=== PATIENT | female | born 1930 | race Caucasian/White ===

== ENCOUNTER → 2016-04-12 | Outpatient (REF) | payer MEDICARE ==
[~2016-04-12] MED LIST: /WARF25TA OR; BISA5TA OR; CALCCHW12 PO; PAIN325T OR; PERC5TAB8 OR; VITAMIN; [UNRECOGNIZED DRUG - OTHER] PO
== END ==
LOC: M LAB REF 15:35
PROVIDERS: ATTEND Ophthalmology
DX: L72.0 Epidermal cyst (principal)

== ENCOUNTER → 2016-11-03 | Outpatient (REF) | payer MEDICARE | LOC: M LAB REF 09:11 | PROVIDERS: ATTEND Nurse Practitioner Women's Health | DX: N39.0 Urinary tract infection, site not specified (principal) ==

== ENCOUNTER → 2016-11-18 | Outpatient (REF) | payer MEDICARE ==
[2016-11-18 19:44] LABS: MEAN CORPUSCULAR HEMOGLOBIN 30.7 pg (27.0-33.0); MEAN CORPUSCULAR HGB CONC 32.6 g/dl (32.0-36.5); MEAN CORPUSCULAR VOLUME 94.1 fl (80.0-96.0); RED CELL DISTRIBUTION WIDTH 13.6 % (11.5-14.5); WHITE BLOOD COUNT 7.8 10^3/uL (4.0-10.0)
[2016-11-18 19:52] LABS: ALBUMIN 3.5 GM/DL (3.2-5.2); ALBUMIN/GLOBULIN RATIO 0.95 (1.00-1.93); ALKALINE PHOSPHATASE 93 U/L (45-117); ALT/SGPT 25 U/L (12-78); ANION GAP 5 MEQ/L (8-16); AST/SGOT 14 U/L (15-37); BILIRUBIN,TOTAL 0.3 MG/DL (0.2-1.0); BLOOD UREA NITROGEN 18 MG/DL (7-18); CALCIUM LEVEL 9.3 MG/DL (8.8-10.2); CARBON DIOXIDE LEVEL 30 MEQ/L (21-32); CHLORIDE LEVEL 104 MEQ/L (98-107); CHOLESTEROL LEVEL 250 MG/DL (<200); CREATININE FOR GFR 0.71 MG/DL (0.55-1.02); GLOMERULAR FILTRATION RATE > 60.0 (>32); GLUCOSE, FASTING 98 MG/DL (83-110); POTASSIUM SERUM 4.6 MEQ/L (3.5-5.1); SODIUM LEVEL 139 MEQ/L (136-145); TOTAL PROTEIN 7.2 GM/DL (6.4-8.2); TRIGLYCERIDES LEVEL 229 MG/DL (<150)
== END ==
LOC: M SFHCPLAZ 14:55
PROVIDERS: ATTEND Internal Medicine
DX: M81.0 Age-related osteoporosis without current pathological fracture (principal); R73.01 Impaired fasting glucose; R03.0 Elevated blood-pressure reading, without diagnosis of hypertension; E78.00 Pure hypercholesterolemia, unspecified; K58.9 Irritable bowel syndrome, unspecified; Z23 Encounter for immunization
CPT/HCPCS: 80053; 80061; 82306; 83036; 85027; 90732; G0009; G0463

== ENCOUNTER → 2017-01-17 | Outpatient (REF) | payer MEDICARE | LOC: M LAB REF 17:11 | PROVIDERS: ATTEND Nurse Practitioner Women's Health | DX: N39.0 Urinary tract infection, site not specified (principal) ==

== ENCOUNTER → 2017-02-02 | Outpatient (REF) | payer MEDICARE | LOC: M LAB REF 17:17 | PROVIDERS: ATTEND Nurse Practitioner Women's Health | DX: N39.0 Urinary tract infection, site not specified (principal) ==

== ENCOUNTER → 2017-03-02 | Outpatient (REF) | payer MEDICARE ==
[2017-03-02 18:17] LABS: AMORPHOUS SEDIMENT SMALL (NEGATIVE); APPEARANCE, URINE CLOUDY (CLEAR); BACTERIA, URINE AUTO 1+ (NEGATIVE); BILIRUBIN, URINE AUTO NEGATIVE (NEGATIVE); BLOOD, URINE BLOOD NEGATIVE (NEGATIVE); COLOR, URINE YELLOW (YELLOW); GLUCOSE, URINE (UA) AUTO NEGATIVE (NEGATIVE); KETONE, URINE AUTO NEGATIVE (NEGATIVE); LEUKOCYTE ESTERASE, URINE AUTO 3+ (NEGATIVE); NITRITE, URINE AUTO NEGATIVE (NEGATIVE); PROTEIN, URINE AUTO 1+ mg/dL (NEGATIVE); RBC, URINE AUTO 37 /HPF (0-3); SPECIFIC GRAVITY URINE AUTO 1.016 (1.002-1.035); SQUAMOUS EPITHELIAL CELL UR AU 1 /HPF (0-6); UROBILINOGEN, URINE AUTO 0.2 mg/dL (0.0-2.0); WBC, URINE AUTO TNTC /HPF (0-3)
== END ==
LOC: M LAB REF 17:23
DX: N39.0 Urinary tract infection, site not specified (principal)
CPT/HCPCS: 81001

== ENCOUNTER → 2017-03-28 | Outpatient (REF) | payer MEDICARE ==
[2017-03-28 14:14] LABS: ERYTHROCYTE SEDIMENTATION RATE 7 mm/hr (0-30)
[2017-03-28 14:29] LABS: C REACTIVE PROTEIN QUANTITATIV < 0.30 MG/DL (0.00-0.30)
[2017-03-28 14:29] LABS: RHEUMATOID FACTOR QUANT < 10.0 IU/ML (0-15.0)
[2017-03-30 00:07] LABS: Lyme Disease IgG/IgM Antibodie <0.91 ISR (0.00-0.90); Lyme Disease IgM Ab Quantitati <0.80 index (0.00-0.79)
[2017-03-31 00:06] LABS: CYCLIC CITRULLINATED PEPTIDE 7 units (0-19)
[2017-03-31 00:06] LABS: ANA (HEP2) Negative (.)
== END ==
LOC: M SFHCPLAZ 11:42
DX: M79.604 Pain in right leg (principal); M79.605 Pain in left leg
CPT/HCPCS: 86140

== ENCOUNTER 2017-04-24 08:47 | Emergency (ER) | payer MEDICARE ==
[2017-04-24 09:25] LABS: BASO % 0.7 % (0.0-1.0); EOS # 0.1 10^3/uL (0.0-0.50); EOS % 1.3 % (0.0-3.0); HEMOGLOBIN 13.8 g/dl (12.0-16.0); IMMATURE GRANULOCYTE % 0.3 % (0-3.0); LYMPH # 1.4 10^3/uL (1.5-4.5); LYMPH % 22.7 % (24.0-44.0); MEAN CORPUSCULAR HEMOGLOBIN 31.2 pg (27.0-33.0); MEAN CORPUSCULAR HGB CONC 34.5 g/dl (32.0-36.5); MEAN CORPUSCULAR VOLUME 90.5 fl (80.0-96.0); MONO # 0.5 10^3/uL (0.0-0.8); MONO % 8.7 % (0.0-5.0); NEUTROPHILS % 66.3 % (36.0-66.0); PLATELET COUNT, AUTOMATED 246 10^3/uL (150-450); RED BLOOD COUNT 4.42 10^6/uL (4.00-5.40); RED CELL DISTRIBUTION WIDTH 13.4 % (11.5-14.5)
[2017-04-24] MEDS: KETOROLAC 30 MG/ML VIAL (J1885) IV (09:26)
[2017-04-24 10:08] LABS: ANION GAP 7 MEQ/L (8-16); BLOOD UREA NITROGEN 16 MG/DL (7-18); CALCIUM LEVEL 9.2 MG/DL (8.8-10.2); CARBON DIOXIDE LEVEL 28 MEQ/L (21-32); CHLORIDE LEVEL 104 MEQ/L (98-107); CREATININE FOR GFR 0.64 MG/DL (0.55-1.30); GLOMERULAR FILTRATION RATE > 60.0 (>32); GLUCOSE, FASTING 104 MG/DL (70-100); POTASSIUM SERUM 3.8 MEQ/L (3.5-5.1); SODIUM LEVEL 139 MEQ/L (136-145)
[2017-04-24] MEDS: ACETAMINOPHEN TAB 650MG DOSE (2X325MG) PO (10:41)
== END 2017-04-24 12:11 | disposition home or self-care (01) ==
LOC: M ED 08:47
DX: M79.1 Myalgia (principal); I10 Essential (primary) hypertension; I45.19 Other right bundle-branch block
CPT/HCPCS: J1885

== ENCOUNTER → 2017-06-11 | Outpatient (REF) | payer MEDICARE ==
[2017-06-11 21:49] LABS: APPEARANCE, URINE HAZY (CLEAR); BACTERIA, URINE AUTO 2+ (NEGATIVE); BILIRUBIN, URINE AUTO NEGATIVE (NEGATIVE); BLOOD, URINE BLOOD NEGATIVE (NEGATIVE); COLOR, URINE YELLOW (YELLOW); GLUCOSE, URINE (UA) AUTO NEGATIVE (NEGATIVE); KETONE, URINE AUTO NEGATIVE (NEGATIVE); LEUKOCYTE ESTERASE, URINE AUTO 3+ (NEGATIVE); NITRITE, URINE AUTO NEGATIVE (NEGATIVE); PROTEIN, URINE AUTO NEGATIVE (NEGATIVE); RBC, URINE AUTO 3 /HPF (0-3); SPECIFIC GRAVITY URINE AUTO 1.006 (1.002-1.035); SQUAMOUS EPITHELIAL CELL UR AU 3 /HPF (0-6); UROBILINOGEN, URINE AUTO 0.2 mg/dL (0.0-2.0); WBC, URINE AUTO 18 /HPF (0-3)
== END ==
LOC: M LAB REF 09:12
DX: R30.0 Dysuria (principal)
CPT/HCPCS: 81001

== ENCOUNTER 2017-07-09 07:58 | Emergency (ER) | payer MEDICARE ==
[2017-07-09] MEDS: NS 500 ML IV ×2 (08:15→08:36)
[2017-07-09 08:39] LABS: BASO % 0.4 % (0.0-1.0); EOS # 0.1 10^3/uL (0.0-0.50); EOS % 1.4 % (0.0-3.0); HEMATOCRIT 40.3 % (36.0-47.0); HEMOGLOBIN 13.8 g/dl (12.0-15.5); IMMATURE GRANULOCYTE % 0.4 % (0-3.0); LYMPH # 1.7 10^3/uL (1.5-4.5); LYMPH % 21.7 % (24.0-44.0); MEAN CORPUSCULAR HEMOGLOBIN 31.2 pg (27.0-33.0); MEAN CORPUSCULAR HGB CONC 34.2 g/dl (32.0-36.5); MONO # 0.9 10^3/uL (0.0-0.8); MONO % 11.1 % (0.0-5.0); PLATELET COUNT, AUTOMATED 268 10^3/uL (150-450); RED BLOOD COUNT 4.43 10^6/uL (4.00-5.40); RED CELL DISTRIBUTION WIDTH 13.2 % (11.5-14.5); WHITE BLOOD COUNT 7.7 10^3/uL (4.0-10.0)
[2017-07-09 08:40] LABS: VENOUS BASE EXCESS 3.9 (-2.0-2.0); VENOUS HCO3 29.1 MEQ/L (23.0-27.0); VENOUS O2 SATURATION 88.3 % (60.0-80.0); VENOUS PARTIAL PRESSURE CO2 45.6 mmHg (38.0-50.0); VENOUS PARTIAL PRESSURE O2 54.3 mmHg (30.0-50.0); VENOUS PH 7.423 UNITS (7.330-7.430); VENOUS STANDARD HCO3 27.7 MEQ/L; VENOUS TOTAL CO2 30.5 MEQ/L (24.0-28.0)
[2017-07-09 08:58] LABS: AMMONIA 11 uMOL/L (<32)
[2017-07-09 09:03] LABS: ACETAMINOPHEN LEVEL < 2.0 UG/ML (10.0-30.0); ALBUMIN 3.3 GM/DL (3.2-5.2); ALBUMIN/GLOBULIN RATIO 0.94 (1.00-1.93); ALKALINE PHOSPHATASE 57 U/L (45-117); ALT/SGPT 24 U/L (12-78); ANION GAP 6 MEQ/L (8-16); AST/SGOT 11 U/L (7-37); BILIRUBIN,DIRECT 0.1 MG/DL (0.0-0.2); BILIRUBIN,TOTAL 0.4 MG/DL (0.2-1.0); BLOOD UREA NITROGEN 16 MG/DL (7-18); CALCIUM LEVEL 8.8 MG/DL (8.8-10.2); CARBON DIOXIDE LEVEL 29 MEQ/L (21-32); CHLORIDE LEVEL 103 MEQ/L (98-107); CPK CREATINE PHOSPHOKINASE 36 U/L (26-192); CREATININE FOR GFR 0.72 MG/DL (0.55-1.30); ETHYL ALCOHOL (ETHANOL) < 0.003 % (0.000-0.010); GLOMERULAR FILTRATION RATE > 60.0 (>32); GLUCOSE, FASTING 110 MG/DL (70-100); POTASSIUM SERUM 4.2 MEQ/L (3.5-5.1); SALICYLATE LEVEL < 1.7 MG/DL (5.0-30.0); SODIUM LEVEL 138 MEQ/L (136-145); TOTAL PROTEIN 6.8 GM/DL (6.4-8.2); TROPONIN I < 0.02 NG/ML (< 0.10)
[2017-07-09 09:10] LABS: THYROID STIMULATING HORMONE 0.544 uIU/ML (0.358-3.740)
[2017-07-09 09:11] LABS: CK-MB VALUE MASS < 1.0 NG/ML (<3.6); MB/CK RELATIVE INDEX 2.77 (< OR =4)
[2017-07-09 09:20] LABS: KETONE, URINE AUTO RFX NEGATIVE (NEGATIVE); LEUKOCYTE ESTERASE UR AUTO RFX NEGATIVE (NEGATIVE); NITRITE, URINE AUTO RFX NEGATIVE (NEGATIVE); RBC, URINE AUTO RFX 0 /HPF (0-3); SPECIFIC GRAVITY UR AUTO RFX 1.009 (1.002-1.035); SQUAM EPITHELIAL CELL UR AURFX 0 /HPF (0-6); WBC, URINE AUTO RFX 0 /HPF (0-3)
[2017-07-09] MEDS: NS 1,000 ML IV (09:23)
[2017-07-09 09:35] LABS: AMPHETAMINES LEVEL URINE NEGATIVE (NEGATIVE); BARBITURATES URINE NEGATIVE (NEGATIVE); BENZODIAZEPINES URINE NEGATIVE (NEGATIVE); CANNABINOIDS URINE NEGATIVE (NEGATIVE); COCAINE METABOLITE URINE NEGATIVE (NEGATIVE); METHADONE URINE NEGATIVE (NEGATIVE); OPIATES URINE NEGATIVE (NEGATIVE); PHENCYCLIDINE URINE NEGATIVE (NEGATIVE)
== END 2017-07-09 10:53 | disposition home or self-care (01) ==
LOC: M ED 07:58
DX: F41.9 Anxiety disorder, unspecified (principal); I10 Essential (primary) hypertension; Z79.899 Other long term (current) drug therapy
CPT/HCPCS: 71045

== ENCOUNTER → 2017-11-10 | Outpatient (CLI) | payer MEDICARE | LOC: M WHC 13:58 | DX: Z12.31 Encounter for screening mammogram for malignant neoplasm of breast (principal); M81.0 Age-related osteoporosis without current pathological fracture; N60.31 Fibrosclerosis of right breast; N60.32 Fibrosclerosis of left breast; M85.88 Other specified disorders of bone density and structure, other site; M85.851 Other specified disorders of bone density and structure, right thigh; M85.852 Other specified disorders of bone density and structure, left thigh | CPT/HCPCS: 77067 ==

== ENCOUNTER → 2017-12-06 | Outpatient (CLI) | payer MEDICARE | LOC: M SLEEP HO 09:00 | DX: G47.39 Other sleep apnea (principal) | CPT/HCPCS: G0399 ==

== ENCOUNTER 2017-12-11 07:15 | Emergency (ER) | payer MEDICARE ==
[2017-12-11 08:03] LABS: BASO % 0.6 % (0.0-1.0); EOS # 0.1 10^3/uL (0.0-0.50); EOS % 1.3 % (0.0-3.0); HEMATOCRIT 42.7 % (36.0-47.0); HEMOGLOBIN 14.4 g/dl (12.0-15.5); IMMATURE GRANULOCYTE % 0.2 % (0-3.0); LYMPH # 1.6 10^3/uL (1.5-4.5); LYMPH % 24.8 % (24.0-44.0); MEAN CORPUSCULAR HEMOGLOBIN 30.9 pg (27.0-33.0); MEAN CORPUSCULAR HGB CONC 33.7 g/dl (32.0-36.5); MEAN CORPUSCULAR VOLUME 91.6 fl (80.0-96.0); MONO # 0.6 10^3/uL (0.0-0.8); MONO % 9.2 % (0.0-5.0); NEUTROPHILS # 4.1 10^3/uL (1.8-7.7); NEUTROPHILS % 63.9 % (36.0-66.0); PLATELET COUNT, AUTOMATED 272 10^3/uL (150-450); RED BLOOD COUNT 4.66 10^6/uL (4.00-5.40); RED CELL DISTRIBUTION WIDTH 13.2 % (11.5-14.5); WHITE BLOOD COUNT 6.4 10^3/uL (4.0-10.0)
[2017-12-11 08:38] LABS: ALBUMIN 3.4 GM/DL (3.2-5.2); ALBUMIN/GLOBULIN RATIO 1.06 (1.00-1.93); ALKALINE PHOSPHATASE 68 U/L (45-117); ALT/SGPT 20 U/L (12-78); ANION GAP 6 MEQ/L (8-16); AST/SGOT 12 U/L (7-37); BILIRUBIN,DIRECT 0.1 MG/DL (0.0-0.2); BILIRUBIN,TOTAL 0.6 MG/DL (0.2-1.0); BLOOD UREA NITROGEN 15 MG/DL (7-18); CALCIUM LEVEL 9.3 MG/DL (8.8-10.2); CARBON DIOXIDE LEVEL 30 MEQ/L (21-32); CHLORIDE LEVEL 104 MEQ/L (98-107); CK-MB VALUE MASS < 1.0 NG/ML (<3.6); CPK CREATINE PHOSPHOKINASE 54 U/L (26-192); CREATININE FOR GFR 0.64 MG/DL (0.55-1.30); FREE T4 1.24 NG/DL (0.76-1.46); GLOMERULAR FILTRATION RATE > 60.0 (>32); GLUCOSE, FASTING 107 MG/DL (70-100); MAGNESIUM LEVEL 2.4 MG/DL (1.8-2.4); MB/CK RELATIVE INDEX 1.85 (< OR =4); PHOSPHORUS LEVEL 3.1 MG/DL (2.5-4.9); POTASSIUM SERUM 4.2 MEQ/L (3.5-5.1); SODIUM LEVEL 140 MEQ/L (136-145); THYROID STIMULATING HORMONE 0.687 uIU/ML (0.358-3.740); TOTAL PROTEIN 6.6 GM/DL (6.4-8.2); TROPONIN I < 0.02 NG/ML (< 0.10)
[2017-12-11 09:02] LABS: AMORPHOUS SEDIMENT RFX SMALL (NEGATIVE); KETONE, URINE AUTO RFX NEGATIVE (NEGATIVE); LEUKOCYTE ESTERASE UR AUTO RFX NEGATIVE (NEGATIVE); MUCUS, URINE RFX SMALL (NEGATIVE); NITRITE, URINE AUTO RFX NEGATIVE (NEGATIVE); RBC, URINE AUTO RFX 0 /HPF (0-3); SPECIFIC GRAVITY UR AUTO RFX 1.008 (1.002-1.035); SQUAM EPITHELIAL CELL UR AURFX 1 /HPF (0-6); WBC, URINE AUTO RFX 0 /HPF (0-3)
[2017-12-11] MEDS: IBUPROFEN 600 MG TAB PO (09:41)
[2017-12-15 14:09] LABS: BEDSIDE GLUCOSE 107 MG/DL (83-110)
== END 2017-12-11 12:54 | disposition home or self-care (01) ==
LOC: M ED 07:15
DX: R20.9 Unspecified disturbances of skin sensation (principal); I10 Essential (primary) hypertension; F41.0 Panic disorder [episodic paroxysmal anxiety]; M25.50 Pain in unspecified joint; M79.601 Pain in right arm; M40.209 Unspecified kyphosis, site unspecified; M79.602 Pain in left arm; M79.604 Pain in right leg; M79.605 Pain in left leg; E04.9 Nontoxic goiter, unspecified; E78.9 Disorder of lipoprotein metabolism, unspecified; R73.01 Impaired fasting glucose; M81.0 Age-related osteoporosis without current pathological fracture; Z79.899 Other long term (current) drug therapy
CPT/HCPCS: 71046

== ENCOUNTER → 2018-01-05 | Outpatient (CLI) | payer MEDICARE | LOC: M SLEEP 19:13 | DX: G47.33 Obstructive sleep apnea (adult) (pediatric) (principal) | CPT/HCPCS: 95810 ==

== ENCOUNTER → 2018-02-09 | Outpatient (CLI) | payer MEDICARE ==
[~2018-02-09] MED LIST changes: +CITA20TA4; +HYDR-643; +HYDR-643 PO
--- NOTE | 2018-02-24 09:26 | SLEEP ---
DATE OF PROCEDURE: 02/09/2018 REFERRING PHYSICIAN: Dr. Montez INTERPRETATION: Overnight polysomnography was performed for titration of positive airway pressure for obstructive sleep apnea syndrome, which was diagnosed based on her polysomnography in December 2017. Before the study, the patient was fit with a [employer] Brevida medium size nasal pillows mask with a chin strap. A total of 7 hours and 49 minutes of data was reviewed with total sleep time 249.5 minutes with reduced sleep efficiency and prolonged sleep onset latency. The oxygen saturation remained 90% or above throughout the study. There were no significant respiratory arousals or respiratory events during the study. Snoring resolved. Periodic limb movement index was 108.9 per hour. Continuous positive airway pressure (CPAP) trial initiated at 4 cm of water pressure and titrated to 8 cm of water pressure with suggested mask. CPAP at 6 cm of water pressure was determined to be the most appropriate setting for patient's CPAP. EEG remained normal throughout. EKG revealed normal sinus rhythm with mean heart rate 68 beats per minute. CONCLUSION: 1. Obstructive sleep apnea syndrome. 2. Severe periodic limb movements of sleep. 3. Successful trial of CPAP 6 cm of water pressure. RECOMMENDATIONS: 1. Nightly use of CPAP 6 cm of water pressure with suggested mask. 2. Clinical correlation is recommended for treatment of periodic limb movements of sleep, which can be seen for restless leg syndrome or obstructive sleep apnea syndrome.
== END ==
LOC: M SLEEP 19:55
PROVIDERS: ATTEND Psychiatry & Neurology Neurology
DX: G47.33 Obstructive sleep apnea (adult) (pediatric) (principal); G47.61 Periodic limb movement disorder

== ENCOUNTER 2018-02-27 07:12 | Emergency (ER) | payer MEDICARE ==
[~2018-02-27] VITALS: Ht 177.8 cm; Wt 65.9 kg
[~2018-02-27 07:12] MED LIST changes: -HYDR-643
[2018-02-27] MEDS ORDERED: NS 1,000 ML IV SCH (07:20)
[2018-02-27] MEDS ORDERED: HYDR-643 (07:25)
[2018-02-27 07:52] LABS: BASO % 0.7 % (0.0-1.0); EOS # 0.1 10^3/uL (0.0-0.50); EOS % 2.2 % (0.0-3.0); HEMATOCRIT 39.8 % (36.0-47.0); HEMOGLOBIN 13.4 g/dl (12.0-15.5); LYMPH # 1.4 10^3/uL (1.5-4.5); LYMPH % 25.4 % (24.0-44.0); MEAN CORPUSCULAR HEMOGLOBIN 30.7 pg (27.0-33.0); MEAN CORPUSCULAR HGB CONC 33.7 g/dl (32.0-36.5); MEAN CORPUSCULAR VOLUME 91.3 fl (80.0-96.0); MONO # 0.6 10^3/uL (0.0-0.8); MONO % 10.4 % (0.0-5.0); NEUTROPHILS # 3.3 10^3/uL (1.8-7.7); NEUTROPHILS % 60.9 % (36.0-66.0); PLATELET COUNT, AUTOMATED 269 10^3/uL (150-450); RED BLOOD COUNT 4.36 10^6/uL (4.00-5.40); WHITE BLOOD COUNT 5.5 10^3/uL (4.0-10.0)
[2018-02-27 08:06] LABS: INR 1.01; PROTHROMBIN TIME 13.4 SECONDS (12.1-14.4)
--- NOTE | 2018-02-27 08:08 | REP ---
Portable chest x-ray: Single view. History: Chest pain. Comparison study: December 11, 2017. Findings: EKG monitoring electrodes overlie the chest. The lungs are well inflated and clear. Heart is mildly enlarged unchanged. The aorta is somewhat tortuous. No significant bony abnormality is seen. Impression: Mild cardiomegaly. Otherwise no acute disease. Electronically Signed by Sanjay Hadley MD 02/27/2018 07:59 A
[2018-02-27 08:28] LABS: ALBUMIN 3.2 GM/DL (3.2-5.2); ALT/SGPT 23 U/L (12-78); BILIRUBIN,DIRECT 0.1 MG/DL (0.0-0.2); BILIRUBIN,TOTAL 0.5 MG/DL (0.2-1.0); BLOOD UREA NITROGEN 12 MG/DL (7-18); CALCIUM LEVEL 9.1 MG/DL (8.8-10.2); CARBON DIOXIDE LEVEL 27 MEQ/L (21-32); CHLORIDE LEVEL 103 MEQ/L (98-107); CK-MB VALUE MASS < 1.0 NG/ML (<3.6); CPK CREATINE PHOSPHOKINASE 58 U/L (26-192); CREATININE FOR GFR 0.58 MG/DL (0.55-1.30); GLOMERULAR FILTRATION RATE > 60.0 (>32); GLUCOSE, FASTING 103 MG/DL (70-100); LIPASE 117 U/L (73-393); MB/CK RELATIVE INDEX 1.72 (< OR =4); POTASSIUM SERUM 3.9 MEQ/L (3.5-5.1); SODIUM LEVEL 138 MEQ/L (136-145); THYROID STIMULATING HORMONE 0.827 uIU/ML (0.358-3.740); TOTAL PROTEIN 6.5 GM/DL (6.4-8.2); TROPONIN I < 0.02 NG/ML (< 0.10)
[2018-02-27 10:35] VITALS: O2SAT 97
[2018-02-27 13:12] VITALS: BP 133/65
--- NOTE | 2018-02-27 18:30 | ECGEPIP ---
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
== END 2018-02-27 13:33 | disposition home or self-care (01) ==
LOC: EDBD 07:12 → M ED 07:12
DX: F41.9 Anxiety disorder, unspecified (principal); R29.818 Other symptoms and signs involving the nervous system; I51.7 Cardiomegaly; I45.10 Unspecified right bundle-branch block; Z79.899 Other long term (current) drug therapy

== ENCOUNTER → 2018-05-23 | Outpatient (REF) | payer MEDICARE ==
[~2018-05-23] MED LIST changes: -/WARF25TA OR; -CITA20TA4; +CITA20TA6; +COUM1TAB18 OR; +HYDR-643
[2018-05-23 12:28] LABS: ALBUMIN 3.6 GM/DL (3.2-5.2); ALT/SGPT 31 U/L (12-78); BILIRUBIN,TOTAL 0.4 MG/DL (0.2-1.0); BLOOD UREA NITROGEN 15 MG/DL (7-18); CALCIUM LEVEL 9.4 MG/DL (8.8-10.2); CARBON DIOXIDE LEVEL 29 MEQ/L (21-32); CHLORIDE LEVEL 104 MEQ/L (98-107); CREATININE FOR GFR 0.67 MG/DL (0.55-1.30); GLOMERULAR FILTRATION RATE > 60.0 (>32); GLUCOSE, FASTING 106 MG/DL (70-100); POTASSIUM SERUM 4.3 MEQ/L (3.5-5.1); SODIUM LEVEL 140 MEQ/L (136-145)
[2018-05-23 12:45] LABS: HEMOGLOBIN A1c 5.9 %
== END ==
LOC: M SFHCPLAZ 08:59
PROVIDERS: ATTEND Internal Medicine
DX: R73.01 Impaired fasting glucose (principal); R03.0 Elevated blood-pressure reading, without diagnosis of hypertension

== ENCOUNTER → 2018-07-30 | Outpatient (REF) | payer MEDICARE | LOC: M SFHCPLAZ 15:29 | PROVIDERS: ATTEND Family Medicine | DX: C44.712 Basal cell carcinoma of skin of right lower limb, including hip (principal); L98.9 Disorder of the skin and subcutaneous tissue, unspecified ==

== ENCOUNTER → 2018-08-30 | Outpatient (REF) | payer MEDICARE ==
[2018-08-30 18:15] LABS: C REACTIVE PROTEIN QUANTITATIV < 0.30 MG/DL (0.00-0.30); RHEUMATOID FACTOR QUANT < 10.0 IU/ML (<15.0)
[2018-09-01 14:16] LABS: ANTINUCLEAR ANTIBODIES DIRECT Negative (Negative)
== END ==
LOC: M LABDRAW1 11:30
PROVIDERS: ATTEND Orthopaedic Surgery
DX: M24.541 Contracture, right hand (principal)

== ENCOUNTER → 2018-09-25 | Outpatient (REF) | payer MEDICARE | LOC: M SFHCPLAZ 16:58 | PROVIDERS: ATTEND Family Medicine | DX: C44.712 Basal cell carcinoma of skin of right lower limb, including hip (principal) | CPT/HCPCS: 11602; 13121; 88305; G0463 ==

== ENCOUNTER 2018-10-30 12:52 | Emergency (ER) | payer MEDICARE ==
[~2018-10-30] VITALS: Ht 177.8 cm; Wt 63.6 kg
[2018-10-30] MEDS ORDERED: NS 1,000 ML IV ONE (13:30)
[2018-10-30 13:46] LABS: BASO % 0.5 % (0.0-1.0); EOS % 0.6 % (0.0-3.0); HEMATOCRIT 44.7 % (36.0-47.0); HEMOGLOBIN 15.2 g/dl (12.0-15.5); LYMPH # 1.6 10^3/uL (1.5-5.0); LYMPH % 23.4 % (24.0-44.0); MEAN CORPUSCULAR HEMOGLOBIN 31.5 pg (27.0-33.0); MEAN CORPUSCULAR VOLUME 92.7 fl (80.0-96.0); MONO # 0.6 10^3/uL (0.0-0.8); MONO % 9.5 % (0.0-5.0); NEUTROPHILS # 4.3 10^3/uL (1.5-8.5); NEUTROPHILS % 65.5 % (36.0-66.0); PLATELET COUNT, AUTOMATED 289 10^3/uL (150-450); RED BLOOD COUNT 4.82 10^6/uL (4.00-5.40); WHITE BLOOD COUNT 6.6 10^3/uL (4.0-10.0)
[2018-10-30 14:16] LABS: ACETAMINOPHEN LEVEL < 2.0 UG/ML (10.0-30.0); ALBUMIN 3.7 GM/DL (3.2-5.2); ALT/SGPT 26 U/L (12-78); BILIRUBIN,DIRECT 0.1 MG/DL (0.0-0.2); BILIRUBIN,TOTAL 0.5 MG/DL (0.2-1.0); BLOOD UREA NITROGEN 17 MG/DL (7-18); CALCIUM LEVEL 9.7 MG/DL (8.8-10.2); CARBON DIOXIDE LEVEL 27 MEQ/L (21-32); CHLORIDE LEVEL 102 MEQ/L (98-107); CK-MB VALUE MASS 1.1 NG/ML (<3.6); CPK CREATINE PHOSPHOKINASE 67 U/L (26-192); CREATININE FOR GFR 0.61 MG/DL (0.55-1.30); GLOMERULAR FILTRATION RATE > 60.0 (>32); GLUCOSE, FASTING 98 MG/DL (70-100); MB/CK RELATIVE INDEX 1.64 (< OR =4); SODIUM LEVEL 139 MEQ/L (136-145); THYROID STIMULATING HORMONE 0.577 uIU/ML (0.358-3.740); TOTAL PROTEIN 7.2 GM/DL (6.4-8.2); TROPONIN I < 0.02 NG/ML (< 0.10)
--- NOTE | 2018-10-30 14:19 | REP ---
CHEST, SINGLE VIEW: Single view of the chest is performed and compared to a prior study of 02/27/2018. Again, there is mild cardiomegaly unchanged. There is mild tortuosity of the thoracic aorta. The mediastinal silhouette is unchanged. There is mild chronic interstitial prominence with no acute infiltrate. IMPRESSION: No acute pulmonary disease. Electronically Signed by John Mcfadden MD 10/31/2018 04:53 P
[2018-10-30 14:53] VITALS: BP 174/89
--- NOTE | 2018-10-30 19:25 | ECGEPIP ---
[facility] - ED Test Date: 2018-10-30 Pat Name: NORY DOSHI Department: Room: - Gender: Female Train Conductor: : 1930 Requested By: CORIE MEDINA Order Number: [id number] Reading MD: Sam Sharp Measurements Intervals [place] Rate: 80 P: -2 GA: 120 QRS: -9 QRSD: 106 T: 20 QT: 387 QTc: 447 Interpretive Statements SINUS RHYTHM WITH OCCASIONAL SUPRAVENTRICULAR PREMATURE COMPLEXES INCOMPLETE RIGHT BUNDLE BRANCH BLOCK MODERATE VOLTAGE CRITERIA FOR LVH, CONSIDER NORMAL VARIANT SIMILAR TO 02/27/18 Electronically Signed on 10-30-2018 19:25:08 EDT by Sam Sharp
== END 2018-10-30 15:10 | disposition home or self-care (01) ==
LOC: M ED 12:52 → EDBD 12:52 → M ED 13:39
DX: F41.9 Anxiety disorder, unspecified (principal); R53.1 Weakness
CPT/HCPCS: 36415; 71045; 80053; 81001; 82140; 82550; 82553; 83605; 84443; 84484; 85025; 93005; 93041; 94760; 96360; 99285; G0480

== ENCOUNTER → 2018-12-19 | Outpatient (REF) | payer MEDICARE | LOC: M LAB REF 10:46 | PROVIDERS: ATTEND Physician Assistant | DX: N39.0 Urinary tract infection, site not specified (principal) ==

== ENCOUNTER 2019-03-19 09:21 | Emergency (ER) | payer MEDICARE ==
[~2019-03-19] VITALS: Ht 175.3 cm; Wt 63.2 kg
[2019-03-19] MEDS ORDERED: LIDOCAINE 2% 5ML JELLY UROJET TOP ONE (09:45)
[2019-03-19 10:49] LABS: BASO % 0.8 % (0.0-1.0); EOS # 0.1 10^3/uL (0.0-0.5); EOS % 1.5 % (0.0-3.0); HEMATOCRIT 44.8 % (36.0-47.0); HEMOGLOBIN 14.1 g/dl (12.0-15.5); LYMPH # 1.4 10^3/uL (1.5-5.0); LYMPH % 26.2 % (24.0-44.0); MEAN CORPUSCULAR HGB CONC 31.5 g/dl (32.0-36.5); MEAN CORPUSCULAR VOLUME 92.2 fl (80.0-96.0); MONO # 0.5 10^3/uL (0.0-0.8); MONO % 9.8 % (0.0-5.0); NEUTROPHILS # 3.2 10^3/uL (1.5-8.5); NEUTROPHILS % 61.1 % (36.0-66.0); PLATELET COUNT, AUTOMATED 328 10^3/uL (150-450); RED BLOOD COUNT 4.86 10^6/uL (4.00-5.40); WHITE BLOOD COUNT 5.2 10^3/uL (4.0-10.0)
[2019-03-19 11:19] LABS: ALBUMIN 3.3 GM/DL (3.2-5.2); ALT/SGPT 21 U/L (12-78); BILIRUBIN,DIRECT 0.1 MG/DL (0.0-0.2); BILIRUBIN,TOTAL 0.5 MG/DL (0.2-1.0); BLOOD UREA NITROGEN 14 MG/DL (7-18); CALCIUM LEVEL 9.1 MG/DL (8.8-10.2); CARBON DIOXIDE LEVEL 30 MEQ/L (21-32); CHLORIDE LEVEL 105 MEQ/L (98-107); CK-MB VALUE MASS < 1.0 NG/ML (<3.6); CPK CREATINE PHOSPHOKINASE 58 U/L (26-192); CREATININE FOR GFR 0.64 MG/DL (0.55-1.30); FREE T4 1.28 NG/DL (0.76-1.46); GLOMERULAR FILTRATION RATE > 60.0 (>32); GLUCOSE, FASTING 98 MG/DL (70-100); LIPASE 108 U/L (73-393); MB/CK RELATIVE INDEX 1.72 (< OR =4); NT-PRO BNP 581 PG/ML (<450); POTASSIUM SERUM 4.1 MEQ/L (3.5-5.1); SODIUM LEVEL 140 MEQ/L (136-145); THYROID STIMULATING HORMONE 0.577 uIU/ML (0.358-3.740); TOTAL PROTEIN 7.1 GM/DL (6.4-8.2); TROPONIN I < 0.02 NG/ML (< 0.10)
--- NOTE | 2019-03-19 11:41 | REP ---
CT BRAIN WITHOUT IV CONTRAST: CT brain performed without IV contrast. Coronal reconstruction images are performed. COMPARISON: 12/11/2017 There is moderate atrophy again noted. No midline shift or mass effect. There are patchy small vessel ischemic changes in the periventricular white matter as seen on prior study. There is no acute intracranial hemorrhage or extra-axial fluid collection. There is diffuse calcification of the falx and of the tentorium. There are vascular calcifications in the carotid siphons. IMPRESSION: Chronic changes appear stable compared to 12/11/2017. No acute intracranial hemorrhage, midline shift, or mass effect. Electronically Signed by John Mcfadden MD 03/20/2019 01:30 P
[2019-03-19] MEDS ORDERED: ISOVUE-370 76% 100ML VIAL (Q9967) As Ordered ONE (12:04)
--- NOTE | 2019-03-19 12:42 | REP ---
CT of the abdomen and pelvis with IV contrast, without bowel contrast for lower abdominal pain: There are no comparisons. There is a questionable 2.9 cm irregular nodule versus infiltrate/atelectasis in the lower lobe of the left lung. There are no comparisons. The hepatic parenchyma, gallbladder, pancreas and spleen are unremarkable. The adrenals are the kidneys are unremarkable. The abdominal aorta is unremarkable except for occasional calcified atheroma. The the There is no bowel distension. The mesentery is unremarkable. Pelvis: There is a hysterectomy. Vaginal cuff and adnexa are unremarkable. The bladder is unremarkable. There is no adenopathy or ascites. There are sigmoid colon diverticula. There is no CT evidence of diverticulitis. Impression: Sigmoid diverticulosis without diverticulitis. Nodule versus atelectasis/infiltrate in the lower lobe of the left lung. Hysterectomy. Electronically Signed by John Hughes MD 03/19/2019 12:33 P
--- NOTE | 2019-03-19 13:22 | REP ---
Portable chest, 10:02 a.m., single AP view with the patient upright: Comparisons are 12/11/2017 and 10/30/2018. The patient is rotated. There is focal increased density inferolaterally in the left lung, likely atelectasis. Left lung is otherwise clear. The right lung is clear. There is mild chronic interstitial coarsening compatible with chronic lung disease. Cardiac size is enlarged, unchanged. The cathie, mediastinum, skeletal structures are unremarkable. Impression: The patient is rotated. Increased density in the left costophrenic angle, likely atelectasis. Cardiomegaly and interstitial coarsening, unchanged. Electronically Signed by John Hughes MD 03/19/2019 01:13 P
[2019-03-19 15:16] VITALS: BP 176/86
--- NOTE | 2019-03-19 18:30 | ECGEPIP ---
[facility] - ED Test Date: 2019-03-19 Pat Name: NORY DOSHI Department: Room: - Gender: Female Case Management Social Worker: robert : 1930 Requested By: Mora Gasca Order Number: [id number] Reading MD: Sam Sharp Measurements Intervals [place] Rate: 66 P: 99 GA: 197 QRS: -14 QRSD: 105 T: 29 QT: 400 QTc: 420 Interpretive Statements SINUS RHYTHM INCOMPLETE RIGHT BUNDLE BRANCH BLOCK SIMILAR TO 10/30/18 Electronically Signed on 03-19-2019 18:30:24 EST by Sam Sharp
--- NOTE | 2019-03-19 20:13 | ED PDOC ---
Post-Departure Follow-Up dr escalante faxed formal report of ct abd/p for fu Mora Cao MD Mar 19, 2019 20:13
== END 2019-03-19 15:20 | disposition home or self-care (01) ==
LOC: M ED 09:21 → EDBD 09:21 → M ED 15:20
DX: R32 Unspecified urinary incontinence (principal); R06.00 Dyspnea, unspecified; I51.7 Cardiomegaly; R91.8 Other nonspecific abnormal finding of lung field; R94.31 Abnormal electrocardiogram [ECG] [EKG]; K57.30 Diverticulosis of large intestine without perforation or abscess without bleeding; J31.0 Chronic rhinitis; Z90.710 Acquired absence of both cervix and uterus; Z79.899 Other long term (current) drug therapy
CPT/HCPCS: 36415; 51701; 70450; 71045; 74177; 80048; 80076; 81001; 82550; 82553; 83690; 83880; 84439; 84443; 84484; 85025; 87040; 93005; 93041; 94760; 99284; Q9967

== ENCOUNTER → 2019-03-22 | Outpatient (REF) | payer MEDICARE ==
[2019-03-22 18:05] LABS: APPEARANCE, URINE CLOUDY (CLEAR); BACTERIA, URINE AUTO 1+ (NEGATIVE); BILIRUBIN, URINE AUTO NEGATIVE (NEGATIVE); BLOOD, URINE BLOOD 3+ (NEGATIVE); COLOR, URINE YELLOW (YELLOW); GLUCOSE, URINE (UA) AUTO NEGATIVE (NEGATIVE); KETONE, URINE AUTO NEGATIVE (NEGATIVE); LEUKOCYTE ESTERASE, URINE AUTO 3+ (NEGATIVE); MUCUS, URINE SMALL (NEGATIVE); NITRITE, URINE AUTO NEGATIVE (NEGATIVE); PROTEIN, URINE AUTO 1+ mg/dL (NEGATIVE); RBC, URINE AUTO 92 /HPF (0-3); SPECIFIC GRAVITY URINE AUTO 1.013 (1.002-1.035); SQUAMOUS EPITHELIAL CELL UR AU 1 /HPF (0-6); UROBILINOGEN, URINE AUTO 0.2 mg/dL (0.0-2.0); WBC, URINE AUTO TNTC /HPF (0-3)
== END ==
LOC: M SMT 16:53
PROVIDERS: ATTEND Nurse Practitioner Family
DX: N39.41 Urge incontinence (principal)

== ENCOUNTER → 2019-05-21 | Outpatient (REF) | payer MEDICARE | LOC: M LAB REF 12:24 | PROVIDERS: ATTEND Internal Medicine | DX: R30.0 Dysuria (principal) ==

== ENCOUNTER → 2019-07-22 | Outpatient (REF) | payer MEDICARE | LOC: M LAB REF 10:35 | PROVIDERS: ATTEND Internal Medicine | DX: N39.0 Urinary tract infection, site not specified (principal) ==

== ENCOUNTER → 2019-08-19 | Outpatient (REF) | payer MEDICARE | LOC: M LAB REF 12:27 | PROVIDERS: ATTEND Internal Medicine | DX: N39.0 Urinary tract infection, site not specified (principal) ==

== ENCOUNTER → 2019-11-27 | Outpatient (CLI) | payer MEDICARE ==
--- NOTE | 2019-12-03 09:28 | REP ---
RENAL ULTRASOUND HISTORY: Urinary tract infection (UTI). TECHNIQUE: Real-time sonographic evaluation of the kidneys is performed. FINDINGS: The kidneys are normal in size and echotexture, right kidney measuring 12.3 x 5.2 x 3.9 cm and the left kidney 12.1 x 5.0 x 4.8 cm. There is no hydronephrosis bilaterally. No definite mass or calculus is seen bilaterally. Urinary bladder is moderately distended with no evidence of calculus or bladder wall abnormality. Ureteral jets are seen in the urinary bladder with Doppler color evaluation. IMPRESSION: Negative renal ultrasound. MTDD
== END ==
LOC: M RAD 10:26
PROVIDERS: ATTEND Nurse Practitioner Family
DX: N39.0 Urinary tract infection, site not specified (principal)

== ENCOUNTER → 2019-11-29 | Outpatient (REF) | payer MEDICARE ==
[2019-11-29 14:05] LABS: APPEARANCE, URINE HAZY (CLEAR); BACTERIA, URINE AUTO NEGATIVE (NEGATIVE); BILIRUBIN, URINE AUTO NEGATIVE (NEGATIVE); BLOOD, URINE BLOOD NEGATIVE (NEGATIVE); COLOR, URINE YELLOW (YELLOW); GLUCOSE, URINE (UA) AUTO NEGATIVE (NEGATIVE); KETONE, URINE AUTO NEGATIVE (NEGATIVE); LEUKOCYTE ESTERASE, URINE AUTO NEGATIVE (NEGATIVE); MUCUS, URINE SMALL (NEGATIVE); NITRITE, URINE AUTO POSITIVE (NEGATIVE); PROTEIN, URINE AUTO NEGATIVE (NEGATIVE); RBC, URINE AUTO 0 /HPF (0-3); SPECIFIC GRAVITY URINE AUTO 1.013 (1.002-1.035); SQUAMOUS EPITHELIAL CELL UR AU 1 /HPF (0-6); UROBILINOGEN, URINE AUTO 0.2 mg/dL (0.0-2.0); WBC, URINE AUTO 1 /HPF (0-3)
== END ==
LOC: M SMT 13:14
PROVIDERS: ATTEND Nurse Practitioner Family
DX: R33.9 Retention of urine, unspecified (principal)
CPT/HCPCS: 51702; 51798; 81001; 87086; G0463

== ENCOUNTER → 2019-12-18 | Outpatient (REF) | payer MEDICARE | LOC: M SMT 13:11 | PROVIDERS: ATTEND Specialist | DX: R33.9 Retention of urine, unspecified (principal) | CPT/HCPCS: 87480; 87510; 87660; G0463 ==

== ENCOUNTER → 2020-01-10 | Outpatient (REF) | payer MEDICARE ==
[2020-01-10 13:59] LABS: APPEARANCE, URINE CLEAR (CLEAR); BACTERIA, URINE AUTO 2+ (NEGATIVE); BILIRUBIN, URINE AUTO NEGATIVE (NEGATIVE); BLOOD, URINE BLOOD NEGATIVE (NEGATIVE); COLOR, URINE YELLOW (YELLOW); GLUCOSE, URINE (UA) AUTO NEGATIVE (NEGATIVE); KETONE, URINE AUTO NEGATIVE (NEGATIVE); LEUKOCYTE ESTERASE, URINE AUTO 2+ (NEGATIVE); NITRITE, URINE AUTO POSITIVE (NEGATIVE); PROTEIN, URINE AUTO NEGATIVE (NEGATIVE); RBC, URINE AUTO 1 /HPF (0-3); SPECIFIC GRAVITY URINE AUTO 1.009 (1.002-1.035); SQUAMOUS EPITHELIAL CELL UR AU 0 /HPF (0-6); UROBILINOGEN, URINE AUTO 0.2 mg/dL (0.0-2.0); WBC, URINE AUTO 27 /HPF (0-3)
== END ==
LOC: M SMT 13:16
PROVIDERS: ATTEND Specialist
DX: R30.0 Dysuria (principal)
CPT/HCPCS: 51702; 81001; 87088; 87186; G8482

== ENCOUNTER → 2020-05-06 | Outpatient (REF) | payer MEDICARE ==
[2020-05-06 17:22] LABS: AMORPHOUS SEDIMENT SMALL (NEGATIVE); APPEARANCE, URINE HAZY (CLEAR); BACTERIA, URINE AUTO 1+ (NEGATIVE); BILIRUBIN, URINE AUTO NEGATIVE (NEGATIVE); BLOOD, URINE BLOOD 1+ (NEGATIVE); COLOR, URINE YELLOW (YELLOW); GLUCOSE, URINE (UA) AUTO NEGATIVE (NEGATIVE); KETONE, URINE AUTO NEGATIVE (NEGATIVE); LEUKOCYTE ESTERASE, URINE AUTO 3+ (NEGATIVE); NITRITE, URINE AUTO POSITIVE (NEGATIVE); PROTEIN, URINE AUTO NEGATIVE (NEGATIVE); RBC, URINE AUTO 1 /HPF (0-3); SPECIFIC GRAVITY URINE AUTO 1.013 (1.002-1.035); SQUAMOUS EPITHELIAL CELL UR AU 0 /HPF (0-6); UROBILINOGEN, URINE AUTO 0.2 mg/dL (0.0-2.0); WBC, URINE AUTO 97 /HPF (0-3)
== END ==
LOC: M LAB REF 16:19
PROVIDERS: ATTEND Obstetrics & Gynecology
DX: N94.818 Other vulvodynia (principal)

== ENCOUNTER → 2020-06-22 | Outpatient (REF) | payer MEDICARE | LOC: M LAB REF 16:24 | PROVIDERS: ATTEND Internal Medicine | DX: R33.9 Retention of urine, unspecified (principal) ==

== ENCOUNTER → 2020-09-22 | Outpatient (REF) | payer MEDICARE | LOC: M LAB REF 16:07 | PROVIDERS: ATTEND Internal Medicine | DX: N39.0 Urinary tract infection, site not specified (principal) ==

== ENCOUNTER 2020-11-01 12:24 | Observation (INO) | payer MEDICARE ==
[~2020-11-01] VITALS: Ht 172.7 cm; Wt 64.0 kg
[~2020-11-01 12:24] MED LIST changes: -CITA20TA6; +CITA20TA6 PO
[2020-11-01] MEDS ORDERED: OXCA150T21 PO (13:57)
[2020-11-01] MEDS ORDERED: KETOROLAC 30 MG/ML 1ML VIAL IV ONE (15:30)
[2020-11-01] MEDS ORDERED: NS 1,000 ML IV SCH (15:30)
--- NOTE | 2020-11-01 16:38 | REP ---
INDICATION: L THIGH PAIN COMPARISON: 12/11/2017. TECHNIQUE: Real time compression and duplex Doppler interrogation of the left lower extremity deep venous system is performed.Compression of the left peroneal and posterior tibial veins is performed. Patient declined imaging of the right common femoral vein. FINDINGS: The left common femoral, superficial femoral and popliteal veins are fully compressible with transducer pressure and demonstrate normal spontaneous and phasic flow, without evidence of deep venous thrombosis. The visualized left peroneal and posterior tibial veins demonstrate no thrombus. IMPRESSION: No evidence of deep venous thrombosis of the left lower extremity femoral popliteal venous system.No thrombus in the visualized left peroneal and posterior tibial veins. <Electronically signed by John Mcfadden > 11/01/20 [id number]
--- NOTE | 2020-11-01 16:42 | REP ---
INDICATION: L THIGH PAIN ATRAUMATIC, HX ORIF. COMPARISON: 03/28/2010. TECHNIQUE: AP pelvis, AP and frogleg left hip. FINDINGS: There is no evidence of acute fracture, dislocation or intrinsic bone disease. Metallic screws are seen in the proximal left femur. Moderate arthritic changes are seen at both hip joints, with joint space narrowing, subchondral sclerosis and spurring. Scattered vascular calcifications are present. IMPRESSION: No acute fracture or dislocation. <Electronically signed by John Mcfadden > 11/01/20 [id number]
--- NOTE | 2020-11-01 16:43 | REP ---
INDICATION: L THIGH PAIN ATRAUMATIC, HX ORIF COMPARISON: None. TECHNIQUE: Four views left knee. FINDINGS: There is no evidence of acute fracture, dislocation, or intrinsic bone disease.There is mild medial joint space narrowing. Vascular calcifications are seen in the posterior soft tissues. IMPRESSION: No fracture or dislocation. <Electronically signed by John Mcfadden > 11/01/20 [id number]
--- NOTE | 2020-11-01 16:44 | REP ---
INDICATION: L THIGH PAIN ATRAUMATIC, HX ORIF COMPARISON: None. TECHNIQUE: AP and lateral left femur. FINDINGS: There is no evidence of acute fracture, dislocation, or intrinsic bone disease.Vascular calcifications are seen in the soft tissues. IMPRESSION: No fracture or dislocation. <Electronically signed by John Mcfadden > 11/01/20 [id number]
[2020-11-01 16:58] LABS: BASO # 0.1 10^3/uL (0.0-0.2); BASO % 0.6 % (0.0-1.0); EOS % 0.5 % (0.0-3.0); HEMATOCRIT 46.7 % (36.0-47.0); HEMOGLOBIN 15.1 g/dl (12.0-15.5); LYMPH # 1.5 10^3/uL (1.5-5.0); LYMPH % 17.1 % (24.0-44.0); MEAN CORPUSCULAR HEMOGLOBIN 30.9 pg (27.0-33.0); MEAN CORPUSCULAR HGB CONC 32.3 g/dl (32.0-36.5); MEAN CORPUSCULAR VOLUME 95.5 fl (80.0-96.0); MONO # 0.8 10^3/uL (0.0-0.8); MONO % 9.2 % (2.0-8.0); NEUTROPHILS # 6.4 10^3/uL (1.5-8.5); NEUTROPHILS % 71.9 % (36.0-66.0); PLATELET COUNT, AUTOMATED 196 10^3/uL (150-450); RED BLOOD COUNT 4.89 10^6/uL (4.00-5.40); WHITE BLOOD COUNT 8.8 10^3/uL (4.0-10.0)
[2020-11-01 17:48] LABS: ALBUMIN 3.2 GM/DL (3.2-5.2); ALT/SGPT 41 U/L (12-78); BILIRUBIN,DIRECT 0.1 MG/DL (0.0-0.2); BILIRUBIN,TOTAL 0.6 MG/DL (0.2-1.0); BLOOD UREA NITROGEN 11 MG/DL (7-18); CALCIUM LEVEL 9.2 MG/DL (8.8-10.2); CARBON DIOXIDE LEVEL 27 MEQ/L (21-32); CHLORIDE LEVEL 109 MEQ/L (98-107); CREATININE FOR GFR 0.43 MG/DL (0.55-1.30); GLOMERULAR FILTRATION RATE > 60.0 (>32); GLUCOSE, FASTING 99 MG/DL (70-100); POTASSIUM SERUM 4.6 MEQ/L (3.5-5.1); SODIUM LEVEL 142 MEQ/L (136-145); TOTAL PROTEIN 6.7 GM/DL (6.4-8.2)
--- NOTE | 2020-11-01 20:17 | ECGEPIP ---
[facility] - ED Test Date: 2020-11-01 Pat Name: NORY DOSHI Department: Room: - Gender: Female Sales Merchandising Specialist: CHANTE : 1930 Requested By: Connie Mendiola PA-C Order Number: [id number] Reading MD: Shanika Vincent Measurements Intervals [place] Rate: 75 P: 83 [place]: 162 QRS: -14 QRSD: 94 T: 32 QT: 386 QTc: 431 Interpretive Statements Sinus rhythm with premature atrial complexes with aberrant conduction Incomplete right bundle branch block increased rate 03/19/19 Electronically Signed on 11-01-2020 20:17:22 EDT by Shanika Vincent
[2020-11-01] MEDS ORDERED: ESTR0.5T3 PO (20:19)
[2020-11-01] MEDS ORDERED: HOME MED LIST COMPLETE! XX SCH (20:25)
[2020-11-01] MEDS ORDERED: PERCOCET 5MG/325MG TAB PO PRN (20:30)
[2020-11-01] MEDS ORDERED: KETOROLAC TROMETHAMINE 10 MG TAB PO PRN (20:30)
[2020-11-01] MEDS ORDERED: ACETAMINOPHEN TAB 650MG DOSE (2X325MG) PO PRN (20:30)
[2020-11-01] MEDS: DOCUSATE SODIUM 100MG CAPSULE PO SCH (21:00)
[2020-11-01] MEDS ORDERED: LIDOCAINE 5% (LIDODERM) PATCH TD SCH (21:00)
--- NOTE | 2020-11-01 21:03 | REPVR ---
PROCEDURE INFORMATION: Exam: CT Left Lower Extremity Without Contrast, Hip Exam date and time: 11/01/2020 8:27 PM Age: 89 years old Clinical indication: Pain; Hip; Left; Prior surgery; Additional info: L leg pain R/O FX TECHNIQUE: Imaging protocol: CT of the Left lower extremity without contrast was performed. Exam focused on the hip. Radiation optimization: All CT scans at this facility use at least one of these dose optimization techniques: automated exposure control; mA and/or kV adjustment per patient size (includes targeted exams where dose is matched to clinical indication); or iterative reconstruction. COMPARISON: CR Hip,AP,LAT to include Pelvis 11/01/2020 3:58 PM FINDINGS: Bones/joints: There are 3 cannulated screws fixating a chronic healed fracture of the left femoral neck in satisfactory alignment without any residual radiolucent fracture line. The hardware is intact and appropriately positioned, without evidence for loosening. There is no acute fracture, dislocation, or bony destructive changes involving the left hip. There is severe osteoarthritis of the left hip. Soft tissues: There is a small fat containing left inguinal hernia. There is a midline vertical incision scar in the anterior pelvic wall. Vasculature: There are atherosclerotic calcifications. Bowel: There is severe sigmoid diverticulosis. The bowel was not fully imaged. IMPRESSION: 1. No acute fracture or dislocation of the left hip. 2. Three cannulated screws fixating a chronic healed fracture of the left femoral neck in satisfactory alignment. 3. Severe osteoarthritis of the left hip. 4. Small fat containing left inguinal hernia. 5. Severe sigmoid diverticulosis. Electronically signed by: Wesly Mendoza On 11/01/2020 21:03:21 PM
[2020-11-01 21:07] LABS: CPK CREATINE PHOSPHOKINASE 141 U/L (26-192)
[2020-11-01] MEDS ORDERED: SENNA 8.6 MG TAB (SENOKOT) PO PRN (22:15)
[2020-11-01 22:20] LABS: RSV AMPLIFICATION NEGATIVE (NEGATIVE)
--- NOTE | 2020-11-01 23:06 | HPEPDOC ---
General Date of Admission Nov 01, 2020 at 12:25 Date of Service: Nov 01, 2020 Chief Complaint The patient is a 89-year-old female admitted with a reason for visit of Fall,Hip Joint Painful On Movement. Source: Patient History of Present Illness Obdulia Cummings is an 89-year-old female with significant medical history of Osteoporosis, HDL, kyphosis, panic attacks, irritable bowel, anxiety, SNHL of both ears, vertigo, sensory neuropathy, and left ORIF who presents with pain of left leg. Patient reports that the pain has been there for 2 to 3 days and she has been unable to get up and walk her usual and has poor p.o. because she has not been able to make herself food. She describes weakness to the left leg because of pain in the left thigh. She does endorses pins needles. She denies fall or recent trauma. Patient is able to bend the leg and straighten it out but describes pain anytime with movement. Patient reports moderate pain and describes as [id number] and tightness. Pedal pulses intact. ED staff attempted to monitor patient's gait and she was unable to bear weight on the left leg. Pt denies lujan, sinus congestion, sore throat, productive cough, sob, palpitations, chest pain, n/v/d, abdominal pain, or syncope. Patient does report that she has urinary incontinence and dizziness, but this is not uncommon for her. She has been taking her medications as scheduled. She reports her baseline is occasional cane to walker use and she lives alone at correction facility. Of note, x-ray left femur, hip and pelvis, knee nonacute. Bilateral lower extremity vascular ultrasound negative for DVT. CT hip completed and negative for fracture. Hardware aligned. Patient afebrile and mildly hypertensive 187/86 but after pain medication improved to 122/76. Patient is not tachycardic and is tolerating room air. Patient will be admitted for further evaluation management presenting concern Home Medications Scheduled Citalopram Hydrobromide (Citalopram HBr) 20 Mg Tab, 10 MG PO DAILY, (Reported) Estradiol (Estrace) 0.5 Mg Tablet, 0.5 MG PO 2XW, (Reported) unsure of days Oxcarbazepine (Oxcarbazepine) 150 Mg Tablet, 150 MG PO DAILY, (Reported) Allergies Coded Allergies: No Known Allergies (Unverified , 11/01/20) Past Medical History Medical History Osteoporosis, elevated fasting glucose, HDL, kyphosis, panic attacks, irritable bowel, anxiety, SNHL of both ears, vertigo, sensory neuropathy, pain of left leg Surgical History CHAIM with USO for fibroids 1973, cystoscopy/recto/anteroseal repair with TVT that required a timeframe to self catheterize, bilateral cataract extractions, ORIF of left hip due to fracture March 2010, colonoscopy 2012, excision of basal cell carcinoma right lower leg September 2018 Family History FatherEtOH and TB age 40; motherCHF, hypertension and GERD; no r eported health history in patient's children Social History * Smoker: Denies Alcohol: Denies Drugs: denies Recent Travel/Sick Contacts: Denies: Recent travel, Recent sick contacts Psychosocial History: Anxiety Patient lives in a correction community. Daughter Obdulia and is patient's healthcare proxy. A-FIB/CHADSVASC A-FIB History Current/History of A-Fib/PAF?: No Current PO Anticoag Therapy: No Review of Systems Constitutional: Reports: Weakness, Fatigue; Denies: Chills, Fever, Night Sweats Eyes: Denies: Pain, Vision change ENT: Denies: Head Aches, Ear Pain, Dysphagia Skin: Denies: Rash, Lesions, Breakdown Pulmonary: Denies: Dyspnea, Cough Cardiovascular: Denies: Chest Pain, Palpitations, Orthopnea, Paroxysmal Noc. Dyspnea Gastrointestinal: Reports: Constipation; Denies: Nausea, Vomiting, Abdominal Pain, Diarrhea Genitourinary: Reports: Frequency, Incontinence; Denies: Dysuria, Retention Hematologic: Denies: Bruising, Bleeding Excessively Musculoskeletal: Reports: Leg Pain; Denies: Neck Pain, Back Pain, Joint Pain, Muscle Pain, Spasms Neurological: Reports: Other Symptoms (dizziness); Denies: Weakness, Numbness, Change in speech, Confusion Psych: Reports: Anxiety; Denies: Mood Normal, Depression, Memory Issues Physical Examination General Exam: Positive: Alert, Cooperative, No Acute Distress, Other (frail appearance ) Eye Exam: Positive: PERRLA, Conjunctiva & lids normal, EOMI; Negative: Sclera icteric ENT Exam: Positive: Atraumatic, Mucous membr. moist/pink, Pharynx Normal, Other ENT (hearing impairment ) Neck Exam: Positive: Supple; Negative: JVD, thyromegaly Chest Exam: Positive: Clear to auscultation, Normal air movement Heart Exam: Positive: Rate Normal, Regular Rhythm, Normal S1, Normal S2; Negative: Murmurs, Rubs Telemetry: Positive: No significant arrhythmia Abdomen Exam: Positive: Normal bowel sounds, Soft; Negative: Tenderness, Hepatospenomegaly Extremity Exam: Positive: Normal pulses, Tenderness, Other (pt able to bend at knee of left leg and straighten; unable to bear weight ); Negative: Clubbing, Cyanosis, Edema, Swelling Skin Exam: Positive: Nl turgor and temperature; Negative: Breakdown, Lesion Neuro Exam: Positive: Normal Gait, Normal Speech, Cranial Nerves 3-12 NL, Reflexes 2+ Psych Exam: Positive: Mental status NL, Anxiety, Oriented x 3 Vital Signs Vital Signs Date Time Temp Pulse Resp B/P (MAP) Pulse Ox O2 Delivery O2 Flow Rate FiO2 11/01/20 18:15 187/86 (119) 11/01/20 18:09 77 16 95 Room Air 11/01/20 12:24 97.9 Laboratory Data Labs 24H Laboratory Tests 2 11/01/20 16:44: Immature Granulocyte % (Auto) 0.7, Neutrophils (%) (Auto) 71.9H, Lymphocytes (%) (Auto) 17.1L, Monocytes (%) (Auto) 9.2H, Eosinophils (%) (Auto) 0.5, Basophils (%) (Auto) 0.6, Neutrophils # (Auto) 6.4, Lymphocytes # (Auto) 1.5, Monocytes # (Auto) 0.8, Eosinophils # (Auto) 0.0, Basophils # (Auto) 0.1, Nucleated Red Blood Cells % (auto) 0.0, Anion Gap 6L, Glomerular Filtration Rate > 60.0, Calcium Level 9.2, Total Bilirubin 0.6, Direct Bilirubin 0.1, Aspartate Amino Transf (AST/SGOT) 29, Alanine Aminotransferase (ALT/SGPT) 41, Alkaline Phosphatase 74, Total Creatine Kinase 141, Total Protein 6.7, Albumin 3.2, Albumin/Globulin Ratio 0.9L 11/01/20 21:23: Coronavirus (COVID-19)(PCR) NEGATIVE, Influenza Type A (RT-PCR) NEGATIVE, Influ kathy Type B (RT-PCR) NEGATIVE, Respiratory Syncytial Virus (PCR) NEGATIVE CBC/BMP Laboratory Tests 11/01/20 16:44 Assessment/Plan 1. Left thigh pain in pt with severe left hip OA: There was question if due to fall, but pt adamant no recent falls or trauma. She does have hx of left ORIF in 2010 and documentation of left leg pain from clinic visits as recent as 2019. This may be acute on chronic pain as x-rays and CT nonacute. -Plan for symptom management/supportive care with toradol -Flector/lidoderm patch -PT eval and treat 2. Intermittent dizziness in Pt with SNHL: Pt reports this is ongoing, has not increased more than usual. Encourage time for pt expression/ communication given challenges with masked communication. Encourage pt with slow position changes. Fall precautions. 3. Urinary continence/history of recurrent UTIs: Patient endorses incontinence with increased urgency frequency. Will obtain UA. 4. Constipation: Continue with bowel regimen 5. Sensory neuropathy: Continue home medications Trileptal. 6. Anxiety: Continue Celexa 7. Deconditioning/ frailty: Appreciate physical therapy. Additionally, case management. Patient has a healthcare proxy her daughter Obdulia Galaviz and there has been discussions according to staff regarding long-term placement. DVT: Lovenox, SCDs CODE STATUS: Full; patient does remark regarding interest in having advance care discussion. Recommend this with patient's healthcare proxy Disposition: Anticipate midnight stay; pending patient response for ambulation vs placement Plan / VTE VTE Prophylaxis Ordered?: Yes PANDA SAEZ NP Nov 01, 2020 22:45
[2020-11-02 03:30] VITALS: BP 134/65
[2020-11-02 07:07] LABS: BASO # 0.1 10^3/uL (0.0-0.2); BASO % 0.7 % (0.0-1.0); EOS # 0.1 10^3/uL (0.0-0.5); EOS % 0.9 % (0.0-3.0); HEMATOCRIT 45.6 % (36.0-47.0); LYMPH # 1.6 10^3/uL (1.5-5.0); LYMPH % 18.9 % (24.0-44.0); MEAN CORPUSCULAR HEMOGLOBIN 30.5 pg (27.0-33.0); MEAN CORPUSCULAR HGB CONC 32.9 g/dl (32.0-36.5); MEAN CORPUSCULAR VOLUME 92.9 fl (80.0-96.0); MONO # 1.2 10^3/uL (0.0-0.8); MONO % 14.8 % (2.0-8.0); NEUTROPHILS # 5.3 10^3/uL (1.5-8.5); NEUTROPHILS % 64.3 % (36.0-66.0); PLATELET COUNT, AUTOMATED 259 10^3/uL (150-450); RED BLOOD COUNT 4.91 10^6/uL (4.00-5.40); WHITE BLOOD COUNT 8.2 10^3/uL (4.0-10.0)
[2020-11-02 07:32] LABS: BLOOD UREA NITROGEN 10 MG/DL (7-18); CALCIUM LEVEL 9.3 MG/DL (8.8-10.2); CARBON DIOXIDE LEVEL 28 MEQ/L (21-32); CHLORIDE LEVEL 104 MEQ/L (98-107); CREATININE FOR GFR 0.59 MG/DL (0.55-1.30); GLOMERULAR FILTRATION RATE > 60.0 (>32); GLUCOSE, FASTING 101 MG/DL (70-100); POTASSIUM SERUM 3.7 MEQ/L (3.5-5.1); SODIUM LEVEL 138 MEQ/L (136-145)
[2020-11-02] MEDS ORDERED: DICLOFENAC EPOLAMINE 1.3 % PATCH TOP SCH (08:00)
[2020-11-02] MEDS: DOCUSATE SODIUM 100MG CAPSULE PO SCH (08:07)
[2020-11-02] MEDS ORDERED: ACETAMINOPHEN 500 MG TAB PO SCH (09:00)
[2020-11-02] MEDS ORDERED: **NOTE PATIENT COMMENT** MISC XX SCH (09:00)
[2020-11-02] MEDS ORDERED: CitaloPRAM (CeleXA) 20 MG TAB PO SCH (09:00)
[2020-11-02] MEDS: OXcarbazepine 150 MG TAB PO SCH ×2 (09:00→10:10)
[2020-11-02] MEDS ORDERED: MIRALAX *UNIT DOSE* 17GM PACKET PO SCH (09:00)
[2020-11-02] MEDS ORDERED: ENOXAPARIN 40MG/0.4ML SYRINGE (J1650 PER 10MG) SC SCH (09:00)
[2020-11-02] MEDS ORDERED: ACET-683 PO ×2 (09:08→12:11)
[2020-11-02] MEDS ORDERED: KETO10TAB PO (09:08)
[2020-11-02] MEDS ORDERED: TRAM50TA2 PO (12:11)
--- NOTE | 2020-11-02 13:30 | DS.PDOC ---
Discharge Summary General Date of Admission Nov 01, 2020 at 12:25 Date of Discharge 11/03/20 Discharge Summary PROCEDURES PERFORMED DURING STAY: [None]. 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 HOSPITAL COURSE: This is a 89-year-old female with significant medical history of Osteoporosis, HDL, kyphosis, panic attacks, irritable bowel, anxiety, SNHL of both ears, vertigo, sensory neuropathy, and left ORIF who presents with pain of left thigh for 2 to 3 days and she has been unable to get up and walk her usual. She denied fall or recent trauma. At baseline she uses occasional cane to walker and lives alone in a skilled nursing facility. Work-up in the ED with x- ray left femur, hip and pelvis, knee nonacute. Bilateral lower extremity vascular ultrasound negative for DVT. CT hip completed and negative for fracture. Hardware aligned. She was unable to bear weight on the left leg in the ED so it was decided to admit her for pain control and PT evaluation. Her pain was controlled with NSAID and Tylenol. She was evaluated by PT and was felt to be safe at her previous level of care. She has been getting home PT for the past 1 month which will be continued. She is going to be discharged home with home services. DISCHARGE MEDICATIONS: Please see below. ALLERGIES: Please see below. PHYSICAL EXAMINATION ON DISCHARGE: VITAL SIGNS: Please see below. General Exam: Positive: Alert, Cooperative, No Acute Distress, Other (frail appearance ) Eye Exam: Positive: PERRLA, Conjunctiva & lids normal, EOMI; Negative: Sclera icteric ENT Exam: Positive: Atraumatic, Mucous membr. moist/pink, Pharynx Normal, Other ENT (hearing impairment ) Neck Exam: Positive: Supple; Negative: JVD, thyromegaly Chest Exam: Positive: Clear to auscultation, Normal air movement Heart Exam: Positive: Rate Normal, Regular Rhythm, Normal S1, Normal S2; Negative: Murmurs, Rubs Telemetry: Positive: No significant arrhythmia Abdomen Exam: Positive: Normal bowel sounds, Soft; Negative: Tenderness, Hepatospenomegaly Extremity Exam: Positive: Normal pulses, Tenderness, Other (pt able to bend at knee of left leg and straighten; unable to bear weight ); Negative: Clubbing, Cyanosis, Edema, Swelling Skin Exam: Positive: Nl turgor and temperature; Negative: Breakdown, Lesion Neuro Exam: Positive: Normal Gait, Normal Speech, Cranial Nerves 3-12 NL, Reflexes 2+ Psych Exam: Positive: Mental status NL, Anxiety, Oriented x 3 LABORATORY DATA: Please see below. IMAGING: CT of left hip FINDINGS: Bones/joints: There are 3 cannulated screws fixating a chronic healed fracture of the left femoral neck in satisfactory alignment without any residual radiolucent fracture line. The hardware is intact and appropriately positioned, without evidence for loosening. There is no acute fracture, dislocation, or bony destructive changes involving the left hip. There is severe osteoarthritis of the left hip. Soft tissues: There is a small fat containing left inguinal hernia. There is a midline vertical incision scar in the anterior pelvic wall. Vasculature: There are atherosclerotic calcifications. Bowel: There is severe sigmoid diverticulosis. The bowel was not fully imaged. IMPRESSION: 1. No acute fracture or dislocation of the left hip. 2. Three cannulated screws fixating a chronic healed fracture of the left femoral neck in satisfactory alignment. 3. Severe osteoarthritis of the left hip. 4. Small fat containing left inguinal hernia. 5. Severe sigmoid diverticulosis. Left knee x-ray FINDINGS: There is no evidence of acute fracture, dislocation, or intrinsic bone disease.There is mild medial joint space narrowing. Vascular calcifications are seen in the posterior soft tissues. IMPRESSION: No fracture or dislocation. Lower extremity venous ultrasound IMPRESSION: No evidence of deep venous thrombosis of the left lower extremity femoral popliteal venous system.No thrombus in the visualized left peroneal and posterior tibial veins. Left femur x-ray FINDINGS: There is no evidence of acute fracture, dislocation, or intrinsic bone disease.Vascular calcifications are seen in the soft tissues. IMPRESSION: No fracture or dislocation. ACTIVITY: [As tolerated]. DIET: As tolerated DISCHARGE PLAN: Home with services DISCHARGE INSTRUCTIONS: PMD in 1-2 DISCHARGE CONDITION: [Stable]. TIME SPENT ON DISCHARGE: 35 minutes. Vital Signs/I&Os Vital Signs Date Time Temp Pulse Resp B/P (MAP) Pulse Ox O2 Delivery O2 Flow Rate FiO2 11/02/20 03:30 98.2 81 134/65 (88) 95 Room Air 11/01/20 23:05 18 I&O- Last 24 Hours up to 6 AM 11/02/20 06:00 Intake Total 1300 ml Balance 1300 ml Laboratory Data Labs 24H Laboratory Tests 2 11/01/20 16:44: Immature Granulocyte % (Auto) 0.7, Neutrophils (%) (Auto) 71.9H, Lymphocytes (%) (Auto) 17.1L, Monocytes (%) (Auto) 9.2H, Eosinophils (%) (Auto) 0.5, Basophils (%) (Auto) 0.6, Neutrophils # (Auto) 6.4, Lymphocytes # (Auto) 1.5, Monocytes # (Auto) 0.8, Eosinophils # (Auto) 0.0, Basophils # (Auto) 0.1, Nucleated Red Blood Cells % (auto) 0.0, Anion Gap 6L, Glomerular Filtration Rate > 60.0, Calcium Level 9.2, Total Bilirubin 0.6, Direct Bilirubin 0.1, Aspartate Amino Transf (AST/SGOT) 29, Alanine Aminotransferase (ALT/SGPT) 41, Alkaline Phospha tase 74, Total Creatine Kinase 141, Total Protein 6.7, Albumin 3.2, Albumin/Globulin Ratio 0.9L 11/01/20 21:23: Coronavirus (COVID-19)(PCR) NEGATIVE, Influenza Type A (RT-PCR) NEGATIVE, Influenza Type B (RT-PCR) NEGATIVE, Respiratory Syncytial Virus (PCR) NEGATIVE 11/02/20 06:39: Immature Granulocyte % (Auto) 0.4, Neutrophils (%) (Auto) 64.3, Lymphocytes (%) (Auto) 18.9L, Monocytes (%) (Auto) 14.8H, Eosinophils (%) (Auto) 0.9, Basophils (%) (Auto) 0.7, Neutrophils # (Auto) 5.3, Lymphocytes # (Auto) 1.6, Monocytes # (Auto) 1.2H, Eosinophils # (Auto) 0.1, Basophils # (Auto) 0.1, Nucleated Red Blood Cells % (auto) 0.0, Anion Gap 6L, Glomerular Filtration Rate > 60.0, Calcium Level 9.3, Lactic Acid Level 1.3 CBC/BMP Laboratory Tests 11/01/20 16:44 11/02/20 06:39 Discharge Medications Scheduled Acetaminophen (Acetaminophen) 500 Mg Tablet, 1,000 MG PO BID Citalopram Hydrobromide (Citalopram HBr) 20 Mg Tab, 10 MG PO DAILY, (Reported) Estradiol (Estrace) 0.5 Mg Tablet, 0.5 MG PO 2XW, (Reported) unsure of days Oxcarbazepine (Oxcarbazepine) 150 Mg Tablet, 150 MG PO DAILY, (Reported) Scheduled PRN Tramadol HCl (Tramadol HCl) 50 Mg Tablet, 1 TAB PO TIDP PRN for pain Allergies Coded Allergies: No Known Allergies (Unverified , 11/01/20) Denia Sepulveda MD Nov 02, 2020 13:30
[2020-11-02 14:41] LABS: HEMOGLOBIN A1c 5.6 %
== END 2020-11-02 15:05 | disposition home health service (06) ==
LOC: M ED 12:24 → M ED INP 12:25 → M MS5PR 11-02 04:30
PROVIDERS: ADMIT Internal Medicine; ATTEND Internal Medicine
DX: M16.12 Unilateral primary osteoarthritis, left hip (principal); M25.552 Pain in left hip; M62.838 Other muscle spasm; Z91.81 History of falling; M81.0 Age-related osteoporosis without current pathological fracture; E78.5 Hyperlipidemia, unspecified; F41.0 Panic disorder [episodic paroxysmal anxiety]; K58.8 Other irritable bowel syndrome; H90.3 Sensorineural hearing loss, bilateral; R32 Unspecified urinary incontinence; Z79.899 Other long term (current) drug therapy; M79.605 Pain in left leg
CPT/HCPCS: 36415; 73502; 73552; 73564; 73700; 80048; 80076; 82550; 83036; 83605; 85025; 87631; 93005; 93971; 96361; 96372; 96374; 97116; 97161; 97165; 99285; G0378; J1650; J1885

== ENCOUNTER → 2021-01-08 | Outpatient (REF) | payer MEDICARE ==
[~2021-01-08] MED LIST changes: +ACET-683 PO; +ESTR0.5T3 PO; +KETO10TAB PO; +OXCA150T21 PO; +TRAM50TA2 PO
== END ==
LOC: M LAB REF 16:08
PROVIDERS: ATTEND Internal Medicine
DX: Z11.1 Encounter for screening for respiratory tuberculosis (principal)

== ENCOUNTER → 2021-02-08 | Outpatient (REF) | payer MEDICARE ==
[2021-02-08 17:16] LABS: APPEARANCE, URINE CLOUDY (CLEAR); BACTERIA, URINE AUTO 1+ (NEGATIVE); BILIRUBIN, URINE AUTO NEGATIVE (NEGATIVE); BLOOD, URINE BLOOD NEGATIVE (NEGATIVE); COLOR, URINE YELLOW (YELLOW); GLUCOSE, URINE (UA) AUTO NEGATIVE (NEGATIVE); KETONE, URINE AUTO NEGATIVE (NEGATIVE); LEUKOCYTE ESTERASE, URINE AUTO 3+ (NEGATIVE); MUCUS, URINE SMALL (NEGATIVE); NITRITE, URINE AUTO NEGATIVE (NEGATIVE); PROTEIN, URINE AUTO NEGATIVE (NEGATIVE); RBC, URINE AUTO 1 /HPF (0-3); SPECIFIC GRAVITY URINE AUTO 1.014 (1.002-1.035); SQUAMOUS EPITHELIAL CELL UR AU 10 /HPF (0-6); UROBILINOGEN, URINE AUTO 0.2 mg/dL (0.0-2.0); WBC, URINE AUTO 35 /HPF (0-3)
== END ==
LOC: M LAB REF 16:17
PROVIDERS: ATTEND Obstetrics & Gynecology
DX: N39.0 Urinary tract infection, site not specified (principal)

== ENCOUNTER → 2021-04-01 | Outpatient (REF) | payer MEDICARE | LOC: M LAB REF 16:20 | PROVIDERS: ATTEND Registered Nurse | DX: R82.998 Other abnormal findings in urine (principal) ==

== ENCOUNTER 2021-04-12 08:55 | Inpatient (IN) | payer MEDICARE ==
[~2021-04-12] VITALS: Ht 180.3 cm; Wt 56.8 kg
[2021-04-12] MEDS ORDERED: NS 500 ML IV ONE (09:55)
[2021-04-12] MEDS ORDERED: LIDOCAINE 2% 5ML JELLY UROJET TOP ONE (10:05)
[2021-04-12] MEDS ORDERED: cefTRIAXone SOD 1 GM in D5W MINI-BAG PLUS 50 ML IV ONE (10:25)
[2021-04-12 10:52] LABS: BASO % 0.5 % (0.0-1.0); EOS % 0.2 % (0.0-3.0); HEMATOCRIT 43.4 % (36.0-47.0); HEMOGLOBIN 14.7 g/dl (12.0-15.5); LYMPH # 1.1 10^3/uL (1.5-5.0); LYMPH % 12.9 % (24.0-44.0); MEAN CORPUSCULAR HEMOGLOBIN 30.6 pg (27.0-33.0); MEAN CORPUSCULAR HGB CONC 33.9 g/dl (32.0-36.5); MEAN CORPUSCULAR VOLUME 90.4 fl (80.0-96.0); MONO # 0.6 10^3/uL (0.0-0.8); MONO % 6.7 % (2.0-8.0); NEUTROPHILS # 6.7 10^3/uL (1.5-8.5); NEUTROPHILS % 79.3 % (36.0-66.0); PLATELET COUNT, AUTOMATED 239 10^3/uL (150-450); WHITE BLOOD COUNT 8.5 10^3/uL (4.0-10.0)
[2021-04-12 10:53] LABS: BLOOD UREA NITROGEN 13 MG/DL (7-18); CALCIUM LEVEL 9.3 MG/DL (8.8-10.2); CARBON DIOXIDE LEVEL 27 MEQ/L (21-32); CHLORIDE LEVEL 105 MEQ/L (98-107); CREATININE FOR GFR 0.55 MG/DL (0.55-1.30); GLOMERULAR FILTRATION RATE > 60.0 (>32); GLUCOSE, FASTING 107 MG/DL (70-100); POTASSIUM SERUM 3.8 MEQ/L (3.5-5.1); SODIUM LEVEL 139 MEQ/L (136-145)
[2021-04-12] MEDS ORDERED: OCUVCAP2 PO (11:13)
[2021-04-12] MEDS ORDERED: OYST500T92 PO (11:13)
[2021-04-12] MEDS: NS 1,000 ML IV SCH ×2 (13:12→22:31)
[2021-04-12] MEDS ORDERED: CLOB0.0548 TOP (18:16)
[2021-04-13 07:17] LABS: BLOOD UREA NITROGEN 11 MG/DL (7-18); CALCIUM LEVEL 8.9 MG/DL (8.8-10.2); CARBON DIOXIDE LEVEL 24 MEQ/L (21-32); CHLORIDE LEVEL 107 MEQ/L (98-107); CREATININE FOR GFR 0.51 MG/DL (0.55-1.30); GLOMERULAR FILTRATION RATE > 60.0 (>32); GLUCOSE, FASTING 80 MG/DL (70-100); POTASSIUM SERUM 3.8 MEQ/L (3.5-5.1); SODIUM LEVEL 139 MEQ/L (136-145)
[2021-04-13] MEDS: CitaloPRAM (CeleXA) 10 MG TABLET PO SCH (08:49)
[2021-04-13] MEDS: OCUVITE 1 TAB PO SCH (08:49)
[2021-04-13] MEDS: ENOXAPARIN 40MG/0.4ML SYRINGE (J1650 PER 10MG) SC SCH (08:50)
[2021-04-13 13:01] LABS: GC DNA AMPLIFICATION NEGATIVE (NEGATIVE)
[2021-04-13 14:00] VITALS: BP 160/80
[2021-04-13 16:48] VITALS: BP 128/62
[2021-04-13 20:03] VITALS: BP 123/71
[2021-04-14 06:00] VITALS: BP 130/80
[2021-04-14] MEDS: OCUVITE 1 TAB PO SCH (09:16)
[2021-04-14] MEDS: CitaloPRAM (CeleXA) 10 MG TABLET PO SCH (09:16)
[2021-04-14] MEDS: ENOXAPARIN 40MG/0.4ML SYRINGE (J1650 PER 10MG) SC SCH (09:16)
[2021-04-14 14:00] VITALS: BP 131/62
[2021-04-15 06:00] VITALS: BP 133/66
[2021-04-15] MEDS: OCUVITE 1 TAB PO SCH (09:20)
[2021-04-15] MEDS: CitaloPRAM (CeleXA) 10 MG TABLET PO SCH (09:20)
[2021-04-15] MEDS: ENOXAPARIN 40MG/0.4ML SYRINGE (J1650 PER 10MG) SC SCH (09:21)
[2021-04-15 14:00] VITALS: BP 131/69
[2021-04-16] MEDS ORDERED: TAMSULOSIN 0.4 MG CAP PO ONE (03:00)
[2021-04-16 06:00] VITALS: BP 133/60
[2021-04-16 07:07] LABS: BASO % 0.6 % (0.0-1.0); EOS # 0.1 10^3/uL (0.0-0.5); EOS % 1.9 % (0.0-3.0); HEMOGLOBIN 12.3 g/dl (12.0-15.5); LYMPH # 1.6 10^3/uL (1.5-5.0); LYMPH % 23.8 % (24.0-44.0); MEAN CORPUSCULAR HEMOGLOBIN 30.4 pg (27.0-33.0); MEAN CORPUSCULAR HGB CONC 33.2 g/dl (32.0-36.5); MEAN CORPUSCULAR VOLUME 91.4 fl (80.0-96.0); MONO # 0.8 10^3/uL (0.0-0.8); MONO % 12.1 % (2.0-8.0); NEUTROPHILS # 4.1 10^3/uL (1.5-8.5); NEUTROPHILS % 61.3 % (36.0-66.0); PLATELET COUNT, AUTOMATED 221 10^3/uL (150-450); RED BLOOD COUNT 4.05 10^6/uL (4.00-5.40); WHITE BLOOD COUNT 6.7 10^3/uL (4.0-10.0)
[2021-04-16 07:34] LABS: BLOOD UREA NITROGEN 13 MG/DL (7-18); CALCIUM LEVEL 8.8 MG/DL (8.8-10.2); CARBON DIOXIDE LEVEL 29 MEQ/L (21-32); CHLORIDE LEVEL 106 MEQ/L (98-107); GLOMERULAR FILTRATION RATE > 60.0 (>32); GLUCOSE, FASTING 94 MG/DL (70-100); POTASSIUM SERUM 3.8 MEQ/L (3.5-5.1); SODIUM LEVEL 140 MEQ/L (136-145)
[2021-04-16] MEDS: ENOXAPARIN 40MG/0.4ML SYRINGE (J1650 PER 10MG) SC SCH (10:13)
[2021-04-16] MEDS: CitaloPRAM (CeleXA) 10 MG TABLET PO SCH (10:13)
[2021-04-16] MEDS: OCUVITE 1 TAB PO SCH (10:13)
== END 2021-04-16 15:58 | disposition home or self-care (01) | DRG 948 ==
LOC: EDBD 08:55 → M ED 08:55 → M ED INP 18:08 → ENRESERV 04-13 04:28 → M MSPAV 04-13 06:45
PROVIDERS: ADMIT Family Medicine; ATTEND Family Medicine
DX: R53.1 Weakness (principal); R33.9 Retention of urine, unspecified; F41.9 Anxiety disorder, unspecified; R30.0 Dysuria; N94.819 Vulvodynia, unspecified; Z79.899 Other long term (current) drug therapy; M81.0 Age-related osteoporosis without current pathological fracture; E78.5 Hyperlipidemia, unspecified; Z98.41 Cataract extraction status, right eye; Z98.42 Cataract extraction status, left eye; H90.3 Sensorineural hearing loss, bilateral; K58.8 Other irritable bowel syndrome; Z66 Do not resuscitate

== ENCOUNTER → 2021-04-22 | Outpatient (REF) | payer MEDICARE ==
[~2021-04-22] MED LIST changes: +CLOB0.0548 TOP; +OCUVCAP2 PO; +OYST500T92 PO
== END ==
LOC: M LAB REF 16:12
PROVIDERS: ATTEND Internal Medicine
DX: N39.0 Urinary tract infection, site not specified (principal)

== ENCOUNTER → 2021-04-28 | Outpatient (REF) | payer MEDICARE | LOC: M SMT 12:51 | PROVIDERS: ATTEND Specialist | DX: N39.0 Urinary tract infection, site not specified (principal) ==